=== PATIENT | female | born 1960 | race Caucasian/White ===

== ENCOUNTER 2016-10-28 14:52 | Emergency (ER) | payer OTHER ==
[~2016-10-28] VITALS: Ht 167.6 cm; Wt 75.0 kg
[~2016-10-28 14:52] MED LIST: CARB25TA9 PO; PRAM0.25 PO; XANA1TAB2 PO
[2016-10-28 14:54] VITALS: BP 121/63; PULSE 83; RESP 18; TEMP 97.8; O2SAT 100
[2016-10-28] MEDS ORDERED: SODIUM CHLOR 0.9% 1000 ML INJ 1,000 ML IV ONE (15:15)
[2016-10-28] MEDS ORDERED: MECLIZINE HCL 25 MG TAB PO ONE (15:15)
[2016-10-28] MEDS ORDERED: ONDANSETRON HCL 4 MG/2 ML VIAL IV PUSH ONE (15:15)
[2016-10-28] MEDS ORDERED: SODIUM CHLORIDE 0.9% FLUSH 5 ML FLUSH IVF PRN (15:15)
--- NOTE | 2016-10-28 15:18 | PD ---
HPI Chief Complaint: Dizziness Time Seen by Provider: 15:09 Travel History International Travel<30 days: No Contact w/Intl Traveler<30days: No Traveled to known affect area: No History of Present Illness HPI 56-year-old female with history of Parkinson's disorder, presents to the ER today because she states that since she has started PT last week, she has been having intermittent episodes of dizziness which she states feels like the room is spinning. She has been nauseous but denies any vomiting. She denies any headache, fevers, or any other symptoms. Modifying Factors: None Associated Signs & Symptoms: Dizziness, nausea Risk Factors: None PFSH Past Medical History Anxiety: Yes Parkinson's Disease: Yes Immunizations Current: Yes Influenza Vaccination: Yes ?: Not Past Surgical History Tonsillectomy: Yes Social History Alcohol Use: No Tobacco Use: No (NEVER) Substance Use: No Allergies-Medications (Allergen,Severity, Reaction): Coded Allergies: Codeine (Verified Allergy, Unknown, 10/28/16) Flu Vaccine (Verified Allergy, Unknown, 10/28/16) Latex (Verified Allergy, Unknown, 10/28/16) Sulfa (Verified Allergy, Unknown, 10/28/16) Reported Meds & Prescriptions Reported Meds & Active Scripts Active Reported Sinemet Cr (Carbidopa-Levodopa ER) 50-200 Mg Tab 1 Tab PO HS Xanax (Alprazolam) 1 Mg Tab 1 Mg PO Q8H PRN Pramipexole (Pramipexole Dihydrochloride) 0.25 Mg Tab 2 Tab PO TID Carbidopa-Levodopa 25-100 Mg Tab 1.5 Tab PO TID Review of Systems Except as stated in HPI: all other systems reviewed are Neg Physical Exam Narrative GENERAL: Well-nourished, well-developed middle age white female patient in no acute distress. Awake and oriented 3. SKIN: Warm and dry. HEAD: Normocephalic. EYES: No scleral icterus. No injection or drainage. NECK: Supple, trachea midline. CARDIOVASCULAR: Regular rate and rhythm without murmurs, gallops, or rubs. RESPIRATORY: Breath sounds equal bilaterally. No accessory muscle use. GASTROINTESTINAL: Abdomen soft, non-tender, nondistended. MUSCULOSKELETAL: No cyanosis, or edema. BACK: Nontender without obvious deformity. No CVA tenderness. NEUROLOGICAL: Awake and alert. Extraocular movements are intact. Pupils are equal, round, reactive to light bilaterally. Moving all 4 extremities. Normal Romberg. Normal speech. No pronator drift. Data Data Last Documented VS Vital Signs Date Time Temp Pulse Resp B/P Pulse Ox O2 Delivery O2 Flow Rate FiO2 10/28/16 16:24 77 16 116/67 100 Room Air 10/28/16 14:54 97.8 Orders Electrocardiogram (10/28/16 15:09) Basic Metabolic Panel (Bmp) (10/28/16 15:09) Complete Blood Count With Diff (10/28/16 15:09) Magnesium (Mg) (10/28/16 15:09) Ecg Monitoring (10/28/16 15:09) Iv Access Insert/Monitor (10/28/16 15:09) Oximetry (10/28/16 15:09) Meclizine (Antivert) (10/28/16 15:15) Sodium Chloride 0.9% Flush (Ns Flush) (10/28/16 15:15) Sodium Chlor 0.9% 1000 Ml Inj (Ns 1000 M (10/28/16 15:15) Urinalysis - C+S If Indicated (10/28/16 15:15) Ondansetron Inj (Zofran Inj) (10/28/16 15:15) Ct Brain W/O Iv Contrast(Rout) (10/28/16 16:03) Labs Laboratory Tests Test 10/28/16 10/28/16 15:25 15:37 Urine Color STRAW Urine Turbidity CLEAR Urine pH 6.5 Urine Specific Ovid 1.005 Urine Protein NEG mg/dL Urine Glucose (UA) NEG mg/dL Urine Ketones NEG mg/dL Urine Occult Blood NEG Urine Nitrite NEG Urine Bilirubin NEG Urine Leukocyte Esterase SMALL Urine RBC 0-3 /hpf Urine WBC 0-2 /hpf Urine Squamous Epithelial 0-5 /hpf Cells Microscopic Urinalysis Comment CULT NOT INDICATED White Blood Count 6.0 TH/MM3 Red Blood Count 3.95 MIL/MM3 Hemoglobin 11.9 GM/DL Hematocrit 35.7 % Mean Corpuscular Volume 90.3 FL Mean Corpuscular Hemoglobin 30.1 PG Mean Corpuscular Hemoglobin 33.3 % Concent Red Cell Distribution Width 12.6 % Platelet Count 297 TH/MM3 Mean Platelet Volume 6.7 FL Neutrophils (%) (Auto) 66.0 % Lymphocytes (%) (Auto) 25.4 % Monocytes (%) (Auto) 5.0 % Eosinophils (%) (Auto) 2.9 % Basophils (%) (Auto) 0.7 % Neutrophils # (Auto) 4.0 TH/MM3 Lymphocytes # (Auto) 1.5 TH/MM3 Monocytes # (Auto) 0.3 TH/MM3 Eosinophils # (Auto) 0.2 TH/MM3 Basophils # (Auto) 0.0 TH/MM3 CBC Comment DIFF FINAL Differential Comment Sodium Level 140 MEQ/L Potassium Level 4.7 MEQ/L Chloride Level 105 MEQ/L Carbon Dioxide Level 28.9 MEQ/L Anion Gap 6 MEQ/L Blood Urea Nitrogen 15 MG/DL Creatinine 0.88 MG/DL Estimat Glomerular Filtration 67 ML/MIN Rate Random Glucose 95 MG/DL Calcium Level 8.9 MG/DL Magnesium Level 2.2 MG/DL MDM Medical Decision Making Medical Screen Exam Complete: Yes Emergency Medical Condition: Yes Medical Record Reviewed: Yes Interpretation(s) EKG shows NSR, no acute ST elevation or depression, and no arrhythmias. No significant T-wave inversions. Laboratory Tests Test 10/28/16 10/28/16 15:25 15:37 Urine Leukocyte Esterase SMALL (NEG) Red Blood Count 3.95 MIL/MM3 (4.00-5.30) Mean Platelet Volume 6.7 FL (7.0-11.0) Estimat Glomerular Filtration 67 ML/MIN (>89) Rate Last [address] 10/28/16 1603 Signed Impressions: Service Date/Time: Friday, October 28, 2016 16:16 - CONCLUSION: Negative noncontrast head CT. No acute intracranial abnormality is identified. Luis Haque MD Differential Diagnosis Dizzinessdehydration versus metabolic issues versus orthostasis versus dysrhythmias versus CVA versus vertigo Narrative Course EKG did not show any signs of significant dysrhythmias. Vital signs are stable in the ER. She has no focal neurological deficits. She is able to stand up without issues and walk to the bathroom on her own. I do not suspect a stroke in this case. CAT scan did not reveal any signs of acute intracranial processes. Lab work shows no significant metabolic issues or dehydration. At this point, my plan would be to release the patient with follow-up to primary care physician. Return for any worsening in symptoms as necessary. She had been given meclizine and Zofran in the ER and states that she did feel some improvement. I will give her further symptomatic relief. The plan was discussed with the patient and she states understanding. Diagnosis Primary Impression: BENIGN PAROXYSMAL VERTIGO, UNSPECIFIED EAR Med/Other Pt SpecificInfo: Prescription(s) given Scripts Meclizine 25 Mg Tab25 Mg PO DIRECTED PRN (VERTIGO) #20 TAB Ref 0 Prov:Palma Hubbard MD 10/28/16 Disposition: 01 DISCHARGE HOME Condition: Stable Palma Hubbard MD Oct 28, 2016 15:18
[2016-10-28] MEDS ORDERED: SINE50TA PO (15:27)
[2016-10-28 15:44] LABS: BASOPHIL % 0.7 % (0.0-2.0); EOSINOPHIL # 0.2 TH/MM3 (0-0.4); EOSINOPHIL % 2.9 % (0.0-4.0); HEMATOCRIT 35.7 % (35.0-46.0); HEMO FLAGS DIFF FINAL; LYMPH % 25.4 % (9.0-44.0); LYMPHOCYTE # 1.5 TH/MM3 (1.0-4.8); MEAN CELL VOLUME 90.3 FL (80.0-100.0); MEAN CORPUSCULAR HEMOGLOBIN 30.1 PG (27.0-34.0); MEAN CORPUSCULAR HGB CONC 33.3 % (32.0-36.0); PLATELET COUNT 297 TH/MM3 (150-450); RED BLOOD COUNT 3.95 MIL/MM3 (4.00-5.30); RED CELL DISTRIBUTION WIDTH 12.6 % (11.6-17.2)
[2016-10-28 15:47] LABS: BLOOD, URINE NEG (NEG); GLUCOSE,URINE NEG (NEG); KETONE, URINE NEG (NEG); NITRITE,URINE NEG (NEG); PH, URINE 6.5 (5.0-8.5)
[2016-10-28 15:50] VITALS: O2SAT 95
[2016-10-28 15:53] LABS: POTASSIUM 4.7 MEQ/L (3.5-5.1)
[2016-10-28 15:54] LABS: URINE COLOR STRAW (YELLW/STRAW)
[2016-10-28 15:55] LABS: COMMENT (UR) CULT NOT INDICATED; CULTURE IF INDICATED CULT NOT INDICATED; RBC, URINE 0-3 /hpf (0-3); SQUAMOUS EPITHELIAL CELL URINE 0-5 /hpf (0-5); WBC, URINE 0-2 /hpf (0-5)
[2016-10-28 15:56] LABS: BICARBONATE 28.9 MEQ/L (21.0-32.0); MAGNESIUM 2.2 MG/DL (1.5-2.5)
[2016-10-28 16:24] VITALS: BP 116/67; PULSE 77; RESP 16; O2SAT 100
--- NOTE | 2016-10-28 16:44 | RADHPO ---
EXAM DATE/TIME: 10/28/2016 16:16 [facility] COMPARISON: No previous studies available for comparison. INDICATIONS : Dizziness. Occipital pain. RADIATION DOSE: 61.31 CTDIvol (mGy) MEDICAL HISTORY : Parkinson's. SURGICAL HISTORY : None. ENCOUNTER: Initial ACUITY: 1 day PAIN SCALE: 5/10 LOCATION: Bilateral occipital TECHNIQUE: Multiple contiguous axial images were obtained of the head. Using automated exposure control and adj ustment of the mA and/or kV according to patient size, radiation dose was kept as low as reasonably a chievable to obtain optimal diagnostic quality images. FINDINGS: CEREBRUM: The ventricles are normal. No evidence of midline shift, mass lesion, hemorrhage or acute infarction . No extra-axial fluid collections are seen. POSTERIOR FOSSA: The cerebellum and brainstem demonstrate no abnormality. The 4th ventricle is midline. The cerebell opontine angle is unremarkable. EXTRACRANIAL: Visualized sinuses are clear. SKULL: The calvaria is intact. No evidence of skull fracture. CONCLUSION: Negative noncontrast head CT. No acute intracranial abnormality is identified. Luis Haque MD on October 28, 2016 at 16:40 Board Certified Radiologist. This report was verified electronically.
[2016-10-28] MEDS ORDERED: MECL-62 PO (17:04)
--- NOTE | 2016-10-29 05:47 | EKG ---
Date Performed: 10/28/2016 Time Performed: 15:02:12 PTAGE: 56 years EKG: Sinus rhythm Anterolateral ST-T changes are nonspecific Borderline ECG NO SIGNIFICANT CHANGE FROM PRIOR ELECTROCA RDIOGRAM. PREVIOUS TRACING : 08/16/2016 11.27 DOCTOR: Cecilio Higgins Interpretating Date/Time 10/29/2016 05:45:43
== END 2016-10-28 17:22 | disposition home or self-care (01) ==
LOC: PHED 14:52
DX: H81.10 Benign paroxysmal vertigo, unspecified ear (principal); G20 Parkinson's disease; Z79.899 Other long term (current) drug therapy
CPT/HCPCS: 70450; 80048; 81001; 83735; 85025; 93005; 96361; 96374; 99284; J2405; J7030

== ENCOUNTER 2017-04-04 19:19 | Emergency (ER) | payer OTHER ==
[~2017-04-04] VITALS: Ht 167.6 cm; Wt 77.5 kg
[~2017-04-04 19:19] MED LIST changes: +MECL-62 PO; +SINE50TA PO
[2017-04-04 19:30] VITALS: BP 123/78; PULSE 92; RESP 20; TEMP 98.1
[2017-04-04] MEDS ORDERED: PROCHLORPERAZINE INJ 10 MG/2 ML VIAL IVP ONE (19:45)
[2017-04-04] MEDS ORDERED: diphenhydrAMINE HCL 50 MG/ML VIAL IVP ONE (19:45)
[2017-04-04] MEDS ORDERED: SODIUM CHLORIDE 0.9% FLUSH 10 ML FLUSH IVF PRN (19:45)
[2017-04-04] MEDS ORDERED: DOXE75CA2 PO (20:04)
[2017-04-04] MEDS ORDERED: GEMF600T PO (20:05)
--- NOTE | 2017-04-04 20:19 | PD ---
HPI . Headache Chief Complaint: Headache Time Seen by Provider: 19:38 Travel History International Travel<30 days: No Contact w/Intl Traveler<30days: No Traveled to known affect area: No History of Present Illness HPI Patient presents with chief complaint of a headache. She describes a bitemporal , squeezing headache which is associated with dizziness. There are no exacerbating or relieving factors. Pain is rated 8/10. The patient believes that the headache is caused by a new medication was just started yesterday for high triglycerides. PFSH Past Medical History Anxiety: Yes Insomnia: Yes Parkinson's Disease: Yes Immunizations Current: Yes Tetanus Vaccination: Unknown Influenza Vaccination: Yes ?: Not Menopausal: Yes Past Surgical History Tonsillectomy: Yes Social History Alcohol Use: No Tobacco Use: No (NEVER) Substance Use: No Allergies-Medications (Allergen,Severity, Reaction): Coded Allergies: Codeine (Verified Allergy, Unknown, 04/04/17) Flu Vaccine (Verified Allergy, Unknown, 04/04/17) Latex (Verified Allergy, Unknown, 04/04/17) Sulfa (Verified Allergy, Unknown, 04/04/17) Reported Meds & Prescriptions Reported Meds & Active Scripts Active Reported Gemfibrozil 600 Mg Tab 600 Mg PO BIDAC Take 30 minutes prior to breakfast and dinner. Doxepin (Doxepin HCl) 75 Mg Cap 75 Mg PO DAILY Sinemet Cr (Carbidopa-Levodopa ER) 50-200 Mg Tab 1 Tab PO HS Xanax (Alprazolam) 1 Mg Tab 1 Mg PO Q8H PRN Pramipexole (Pramipexole Dihydrochloride) 0.25 Mg Tab 2 Tab PO TID Carbidopa-Levodopa 25-100 Mg Tab 1.5 Tab PO TID Review of Systems Except as stated in HPI: all other systems reviewed are Neg General / Constitutional: No: Fever Eyes: No: Blurred Vision HENT: Positive: Headaches, Vertigo Gastrointestinal: No: Nausea Physical Exam Narrative GENERAL: Anxious appearing woman. SKIN: Warm and dry. HEAD: Atraumatic. Normocephalic. Bitemporal tenderness. EYES: Pupils equal and round. Extraocular movements are intact. ENT: No nasal bleeding or discharge. Mucous membranes pink and moist. NECK: Trachea midline. Neck is supple. CARDIOVASCULAR: Regular rate and rhythm. RESPIRATORY: No accessory muscle use. MUSCULOSKELETAL: No obvious deformities. No edema. NEUROLOGICAL: Awake and alert. No obvious cranial nerve deficits. Motor grossly within normal limits. Normal speech. PSYCHIATRIC: Appropriate mood and affect; insight and judgment normal. Data Data Last Documented VS Vital Signs Date Time Temp Pulse Resp B/P Pulse Ox O2 Delivery O2 Flow Rate FiO2 04/04/17 19:30 98.1 92 20 123/78 Orders Iv Access Insert/Monitor (04/04/17 19:38) Sodium Chloride 0.9% Flush (Ns Flush) (04/04/17 19:45) Prochlorperazine Inj (Compazine Inj) (04/04/17 19:45) Diphenhydramine Inj (Benadryl Inj) (04/04/17 19:45) MDM Medical Decision Making Medical Screen Exam Complete: Yes Emergency Medical Condition: Yes Differential Diagnosis Differential diagnosis of headache includes but is not limited to migraine, muscle contraction headache, brain tumor, brain bleed Narrative Course Patient presents for treatment of a headache. Physical exam is compatible with a muscle contraction type headache. She will be treated with IV Compazine and Benadryl. H/A now resolved. Diagnosis Primary Impression: Headache Qualified Code: G44.209 - Acute non intractable tension-type headache Patient Instructions: Acute Headache (DC), General Instructions Disposition: 01 DISCHARGE HOME Condition: Stable Ramonita Butler MD Apr 04, 2017 20:19
[2017-04-04 21:14] VITALS: BP 100/78
== END 2017-04-04 21:17 | disposition home or self-care (01) ==
LOC: PHED 19:19
DX: G44.209 Tension-type headache, unspecified, not intractable (principal)
CPT/HCPCS: 96374; 96375; 99284; J0780; J1200